=== PATIENT | female | born 1955 | race Two or more races ===

== ENCOUNTER 2018-10-29 17:16 | Emergency (ER) | payer OTHER ==
[~2018-10-29] VITALS: Ht 167.6 cm; Wt 826.9 kg
[2018-10-29] MEDS ORDERED: ATENOLOL25 MG (17:39)
[2018-10-29] MEDS ORDERED: SIMVASTATIN10 MG (17:39)
[2018-10-29] MEDS ORDERED: LOSARTAN-HCTZ1 EACH (17:39)
[2018-10-29] MEDS ORDERED: XANAX0.25 MG (17:40)
== END 2018-10-29 21:35 | disposition home or self-care (01) ==
LOC: ER 17:16
DX: S80.02XA Contusion of left knee, initial encounter (principal); X50.9XXA Other and unspecified overexertion or strenuous movements or postures, initial encounter; Y93.89 Activity, other specified; Y92.89 Other specified places as the place of occurrence of the external cause; Y99.8 Other external cause status